=== PATIENT | female | born 1940 | race Caucasian/White ===

== ENCOUNTER → 2016-08-05 | Outpatient (CLI) | payer MEDICARE, BC ==
[~2016-08-05] MED LIST: ADDERALL10 MG PO; APIDRA SOLOS100 U/ML SC; APIDRAVL SQ; ASPIRIN 81M81 MG/TA2 PO; AVAPRO75 MG PO; BENADRYL25 M2 PO; CARAFATE 1GM1 G PO; CLEOCIN HCL300 MG PO; CO Q-1010 M1 PO; FLEXERIL 1010 MG/TAB PO; FORT1000TA PO; HUMALOG100 U/ML; HYDROCORTISO28.35 GM TP; LANTUS SOLOS100 U/ML SQ; LANTUS100 U/ML SQ; LOPRESSOR 225 MG/TAB PO; LOTRIMIN1% TP; MAGNESIUM500 MG PO; MELATONIN5 MG; METAMUCIL3.4 GM/DOS PO; NORCO 325 MG-7.1 TAB PO; PRAVACHOL 40MG40 MG PO; PRIL40 PO; ROBAXIN 75750 MG/TAB PO; STRATTERA 10MG10 MG; TUMS500 MG PO; VITAMIN B COMPL1 T16 PO; VITAMIN D 1001000 IU PO; VITAMIN D31000 IU PO; VITAMIN D32000 I1 PO; WELLBUTRIN XL150 MG PO; [UNRECOGNIZED DRUG - OTHER] PO
== END ==
LOC: COL.RAD 07:52
PROVIDERS: Surgery
DX: D37.4 Neoplasm of uncertain behavior of colon (principal); K55.1 Chronic vascular disorders of intestine
CPT/HCPCS: Q9967

== ENCOUNTER 2016-08-10 10:56 | Inpatient (IN) | payer MEDICARE, BC ==
[~2016-08-10] VITALS: Ht 165.1 cm; Wt 85.3 kg
[~2016-08-10 10:56] MED LIST changes: -ASPIRIN 81M81 MG/TA2 PO; -HYDROCORTISO28.35 GM TP; -LOPRESSOR 225 MG/TAB PO; -LOTRIMIN1% TP; -ROBAXIN 75750 MG/TAB PO; -TUMS500 MG PO; -VITAMIN D 1001000 IU PO; -WELLBUTRIN XL150 MG PO
[2016-09-22] VITALS (13 sets, daily range): BP systolic 129–189; BP diastolic 56–94; PULSE 73–120; TEMP 98.3–99.8
[2016-09-22] MEDS ORDERED: WELLBUTRIN XL150 MG PO (07:00)
[2016-09-22] MEDS ORDERED: VITAMIN D 1001000 IU PO (07:00)
[2016-09-22] MEDS ORDERED: TUMS500 MG PO (07:01)
[2016-09-22] MEDS ORDERED: ROBAXIN 75750 MG/TAB PO (07:01)
[2016-09-22] MEDS ORDERED: HYDROCORTISO28.35 GM TP (07:02)
[2016-09-22] MEDS ORDERED: LOTRIMIN1% TP (07:04)
[2016-09-22 22:56] LABS: HEMATOCRIT 41.7 % (37.0-47.0); HEMOGLOBIN 14.4 g/dl (12.5-16.0)
[2016-09-23] VITALS (11 sets, daily range): BP systolic 125–204; BP diastolic 59–95; PULSE 75–118; TEMP 98.1–99.8
[2016-09-23 07:34] LABS: HEMATOCRIT 40.4 % (37.0-47.0); HEMOGLOBIN 13.4 g/dl (12.5-16.0); MEAN CELL VOLUME 89 fl (80.0-100.0); MEAN CORPUSCULAR HEMOGLOBIN 30 pg (27.0-31.0); MEAN CORPUSCULAR HGB CONC 33 g/dl (33.0-37.0); MEAN PLATELET VOLUME 11.3 fl (7.4-10.4); PLATELET COUNT 177 K/mm3 (130-400); RED BLOOD COUNT 4.55 M/mm3 (4.10-5.30); REDCELL DISTRIBUTION WIDTH-CV 13.7 % (11.5-14.5); WHITE BLOOD COUNT 8.8 K/mm3 (4.8-10.8)
[2016-09-23 07:50] LABS: CALCIUM 8.3 mg/dL (8.4-10.2); CREATININE, serum 0.91 mg/dL (0.52-1.25); POTASSIUM 3.6 mmol/L (3.4-5.0)
[2016-09-23 18:38] LABS: ARTERIAL BLD GAS O2 SATURATION 89.5 % (92-100); ARTERIAL BLD GAS TCO2 CT 25.4; ARTERIAL BLOOD GAS BASE EXCESS -0.6 (-2-2); ARTERIAL BLOOD GAS HCO3 24.2 meq/L (22-26); ARTERIAL BLOOD GAS PHT 7.39 C (7.35-7.45); ARTERIAL BLOOD GAS PO2 56.4 mmHg (80-100); ARTERIAL BLOOD GAS PO2T 56.4 (80-100); ARTERIAL BLOOD GAS pH 7.39 (7.35-7.45); OXYHEMOGLOBIN 87.9 %
[2016-09-23 18:39] LABS: ATS? YES
[2016-09-24] VITALS (7 sets, daily range): BP systolic 121–164; BP diastolic 48–72; PULSE 69–107; TEMP 98–98.8
[2016-09-25 01:38] VITALS: BP 144/71; PULSE 78; TEMP 98.5
[2016-09-25 04:41] VITALS: BP 157/79; PULSE 81; TEMP 98.6
[2016-09-25 07:22] LABS: HEMOGLOBIN 12.9 g/dl (12.5-16.0); MEAN CELL VOLUME 87 fl (80.0-100.0); MEAN CORPUSCULAR HEMOGLOBIN 30 pg (27.0-31.0); MEAN CORPUSCULAR HGB CONC 34 g/dl (33.0-37.0); PLATELET COUNT 180 K/mm3 (130-400); RED BLOOD COUNT 4.37 M/mm3 (4.10-5.30); REDCELL DISTRIBUTION WIDTH-CV 13.2 % (11.5-14.5); WHITE BLOOD COUNT 6.3 K/mm3 (4.8-10.8)
[2016-09-25 07:57] LABS: CALCIUM 8.8 mg/dL (8.4-10.2); CREATININE, serum 0.52 mg/dL (0.52-1.25); POTASSIUM 3.1 mmol/L (3.4-5.0)
[2016-09-25 09:35] VITALS: BP 141/57; PULSE 86; TEMP 99.2
[2016-09-25 10:19] VITALS: TEMP 98.7
[2016-09-25] MEDS ORDERED: LOPRESSOR 225 MG/TAB PO (12:09)
[2016-09-25] MEDS ORDERED: LANTUS100 U/ML SQ (12:10)
[2016-09-25] MEDS ORDERED: ASPIRIN 81M81 MG/TA2 PO (12:10)
[2016-09-25 13:29] VITALS: BP 166/72; PULSE 80; TEMP 98.9
== END 2016-09-25 16:00 | disposition home or self-care (01) | DRG 329 ==
LOC: INPTSU 09-22 05:31 → SURG 09-22 07:30
PROVIDERS: Family Medicine; Internal Medicine; Surgery
PROC: 8E0W0CZ Robotic Assisted Procedure of Trunk Region, Open Approach (ICD-10-PCS; 2016-09-22)
PROC: 0DTF0ZZ Resection of Right Large Intestine, Open Approach (ICD-10-PCS; principal; 2016-09-22 07:30)
DX: D12.3 Benign neoplasm of transverse colon (principal); I21.4 Non-ST elevation (NSTEMI) myocardial infarction; Z80.0 Family history of malignant neoplasm of digestive organs; E11.9 Type 2 diabetes mellitus without complications; Z85.41 Personal history of malignant neoplasm of cervix uteri; R00.0 Tachycardia, unspecified; I97.3 Postprocedural hypertension
CPT/HCPCS: 99222; 99232-AI; 99233-AI; A4315; A9284; J0330; J0360; J0690; J1170; J1200; J1650; J1815; J2405; J2704; J2710; J7030; J7040

== ENCOUNTER 2018-01-14 11:43 | Observation (INO) | payer MEDICARE, BC ==
[~2018-01-14] VITALS: Ht 165.1 cm; Wt 87.8 kg
[~2018-01-14 11:43] MED LIST changes: +ASPIRIN 81M81 MG/TA2 PO; +HYDROCORTISO28.35 GM TP; +LOPRESSOR 225 MG/TAB PO; +LOTRIMIN1% TP; +ROBAXIN 75750 MG/TAB PO; +TUMS500 MG PO; +VITAMIN D 1001000 IU PO; +WELLBUTRIN XL150 MG PO
[2018-01-14] MEDS ORDERED: LANTUS SOLOS100 U/ML SQ (13:03)
[2018-01-14 13:04] LABS: BASO # 0.1 (0.0-0.2); BASO % 0.8 % (0.0-2.0); EOS # 0.2 (0.0-0.7); EOS % 2.8 % (0-4.0); GRAN # 3.1 (1.4-6.5); GRAN % 50.3 % (42.2-75.2); HEMATOCRIT 44.1 % (37.0-47.0); HEMOGLOBIN 15.3 g/dl (12.5-16.0); LYMPH # 2.2 (1.2-3.4); LYMPH % 36.6 % (20.0-51.0); MEAN CELL VOLUME 84 fl (80.0-100.0); MEAN CORPUSCULAR HEMOGLOBIN 29 pg (27.0-31.0); MEAN CORPUSCULAR HGB CONC 35 g/dl (33.0-37.0); MEAN PLATELET VOLUME 11.9 fl (7.4-10.4); MONO # 0.5 (0.1-0.6); MONO % 8.8 % (1.7-9.3); PLATELET COUNT 179 K/mm3 (130-400); RED BLOOD COUNT 5.26 M/mm3 (4.10-5.30); REDCELL DISTRIBUTION WIDTH-CV 12.6 % (11.5-14.5)
[2018-01-14] MEDS ORDERED: APIDRAVL SQ (13:06)
[2018-01-14 13:10] LABS: ALBUMIN 4.1 gm/dL (3.5-5.0); BILIRUBIN,TOTAL 0.8 mg/dL (0.0-1.0); CREATININE, serum 0.54 mg/dL (0.52-1.25); POTASSIUM 3.9 mmol/L (3.4-5.0); TOTAL PROTEIN 7.3 gm/dL (6.4-8.2)
[2018-01-14 16:26] VITALS: BP 141/65; PULSE 89; TEMP 98.2
[2018-01-14 20:12] VITALS: BP 153/80; PULSE 87; TEMP 98.4
[2018-01-14 23:26] VITALS: BP 138/61; PULSE 97; TEMP 98.6
[2018-01-15 04:17] VITALS: BP 167/94; PULSE 74; TEMP 98.4
[2018-01-15 07:30] LABS: CHOLESTEROL RISK RATIO 4.6
[2018-01-15 08:39] VITALS: BP 147/87; PULSE 79; TEMP 98.2
[2018-01-15 10:21] VITALS: BP 112/72; BP 139/66; PULSE 65; PULSE 84
[2018-01-15 12:00] VITALS: BP 159/73; PULSE 93; TEMP 98.5
== END 2018-01-15 16:33 | disposition home or self-care (01) ==
LOC: COL.ER 11:43 → MEDICAL 14:21
PROVIDERS: Emergency Medicine; Physician Assistant
DX: F80.1 Expressive language disorder (principal); E11.9 Type 2 diabetes mellitus without complications; Z79.4 Long term (current) use of insulin; G47.33 Obstructive sleep apnea (adult) (pediatric); Z79.82 Long term (current) use of aspirin; Z79.899 Other long term (current) drug therapy; F32.9 Major depressive disorder, single episode, unspecified; E66.9 Obesity, unspecified; I25.2 Old myocardial infarction
CPT/HCPCS: A9585; G0378; J1644; J1815

== ENCOUNTER → 2019-04-12 | Outpatient (CLI) | payer MEDICARE, BC | LOC: COL.RAD 08:59 | DX: Z01.812 Encounter for preprocedural laboratory examination (principal); M48.061 Spinal stenosis, lumbar region without neurogenic claudication | CPT/HCPCS: A9585 ==

== ENCOUNTER 2019-05-22 20:05 | Observation (INO) | payer MEDICARE, BC ==
[~2019-05-22] VITALS: Ht 165.1 cm; Wt 88.0 kg
[2019-05-22] MEDS ORDERED: HUMALOG PEN100 U/ML SQ (20:19)
[2019-05-22 23:51] LABS: COLLECTION METHOD CLEAN CATCH
[2019-05-23] VITALS (9 sets, daily range): BP systolic 128–196; BP diastolic 71–91; PULSE 71–100; TEMP 97.8–99.1
[2019-05-23 00:08] LABS: BASO # 0.1 (0.0-0.2); BASO % 0.4 % (0.0-2.0); EOS # 0.2 (0.0-0.7); EOS % 1.6 % (0-4.0); GRAN # 8.3 (1.4-6.5); GRAN % 72.3 % (42.2-75.2); HEMATOCRIT 43.1 % (37.0-47.0); HEMOGLOBIN 14.6 g/dl (12.5-16.0); LYMPH # 2.2 (1.2-3.4); LYMPH % 18.8 % (20.0-51.0); MEAN CELL VOLUME 86 fl (80.0-100.0); MEAN CORPUSCULAR HEMOGLOBIN 29 pg (27.0-31.0); MEAN CORPUSCULAR HGB CONC 34 g/dl (33.0-37.0); MEAN PLATELET VOLUME 10.4 fl (7.4-10.4); MONO # 0.8 (0.1-0.6); MONO % 6.6 % (1.7-9.3); PLATELET COUNT 220 K/mm3 (130-400); RED BLOOD COUNT 5.01 M/mm3 (4.10-5.30); REDCELL DISTRIBUTION WIDTH-CV 12.9 % (11.5-14.5)
[2019-05-23 00:11] LABS: MUCOUS Present /lpf; PH 5 (5-8); SQUAMOUS EPITHELIAL None Seen /hpf; URINE APPEARANCE Clear; URINE BACTERIA None Seen /hpf; URINE BILIRUBIN Negative (NEGATIVE); URINE BLOOD Negative (NEGATIVE); URINE COLOR Yellow; URINE GLUCOSE 2+ (NEGATIVE); URINE KETONE Negative (NEGATIVE); URINE LEUKOCYTE ESTERASE Negative (NEGATIVE); URINE NITRATE Negative (NEGATIVE); URINE PROTEIN(semi-quant) Negative (NEGATIVE); URINE UROBILINOGEN Negative (NEGATIVE)
[2019-05-23 00:18] LABS: CALCIUM 9.3 mg/dL (8.4-10.2); CREATININE, serum 0.73 (0.52-1.25)
[2019-05-23] MEDS ORDERED: GLUCOPHAGE1000 MG PO (01:00)
--- NOTE | 2019-05-23 04:23 | NUR ---
Pt arrived to unit around 0200 from ED with dx of fall and gait instability. Patient is alert and oriented. Mild HTN. IV to right AC INT. Fentanyl given when she arrived 25mcg for pain, most c/o pain to left ankle. Left ankle is swollen. No fx shown on imaging. Here for pain control and observation. Denies needs at this time. Call light within reach, will continue to monitor
[2019-05-23 06:21] LABS: CALCIUM 9.3 mg/dL (8.4-10.2); CREATININE, serum 0.63 (0.52-1.25); POTASSIUM 3.8 mmol/L (3.4-5.0)
--- NOTE | 2019-05-23 08:14 | NUR ---
SEE MORNING SHIFT ASSESSMENT. PATIENT RESTING IN BED THIS MORNING. NON-PITTING EDEMA TO LEFT ANKLE, KNEE AND WRIST. BRACE IN PLACE TO LEFT WRIST. PATIENTS LEFT EXTREMITIES ELEVATED ON PILLOWS AND ICE PACKS APPLIED TO LEFT UPPER AND LOWER EXTREMITIES. PATIENTS BLOOD PRESSURE THIS AM IS 177/82 WITH A LORETTA OF 99.1. PATIENT GIVEN PRN HYDRALAZINE AND TYLENOL. WILL CONTINUE TO MONITOR. CALL LIGHT WITHIN REACH. PATIENT DENIES ANY OTHER NEEDS AT THIS TIME.
--- NOTE | 2019-05-23 10:21 | NUR ---
SW met with the patient to discuss discharge plan. The patient lives alone at [facility] in [facility]. She states that her son, Carmelo Montoya (ph#[phone]), also lives in [place]. She reports independence with ADLs and has a cane, two walkers, and a CPAP from [facility]. She does not have any home health services. The patient's PCP is Dr. Amber Major and she [facility] her [facility] She reports no difficulties obtaining her meds. The patient does not have advanced directives in EMR, but she states that she does have them completed. She states that her DPOA-HC is her children, Carmelo Montoya and Alana Galvan (ph#[phone]). The patient had a fall and is having left lower extremity pain and wrist pain. PT/OT have been ordered. SW discussed the patient's observation status and post-acute rehab. The patient states that she would first like to see what PT/OT recommend. She states that if post-acute rehab is recommended, that she does have courtesy days at [facility]. SW awaiting PT/OT evals and will continue to follow.
--- NOTE | 2019-05-23 10:57 | NUR ---
MATHEW staffed with Familia from PT. Familia recommends [facility] for the patient with continued PT/OT if possible, otherwise home with home health and a platform walker. MATHEW met with the patient to discuss these options. The patient reports that she would prefer going to [facility] [facility]. MATHEW presented and explained the Patient Choice Form and provided her with Medicare.[facility]'s list of nursing homes in the [facility]. The patient chose [facility], due to have courtesy days there. Patient Choice Form signed by the patient and she was provided a copy. MATHEW contacted and faxed a referral to Elaine at [facility]. MATHEW awaiting their screen.
--- NOTE | 2019-05-23 11:58 | NUR ---
PATIENT GIVEN 10 MG OF PRN HYDRALAZINE IV FOR A BLOOD PRESSURE OF 182/85.
--- NOTE | 2019-05-23 13:31 | NUR ---
PATIENTS BLOOD PRESSURE RE-CHECKED AFTER PRN HYDRALAZINE. BLOOD PRESSURE NOW 145/74.
--- NOTE | 2019-05-23 15:07 | NUR ---
Initial visit; Patient thanked Repeat Photocomposing Machine Operator for looking in on her and offering comfort, encouragement and prayer. Repeat Photocomposing Machine Operator will follow up.
--- NOTE | 2019-05-23 15:45 | NUR ---
REPORT GIVEN TO VALENTÍN PONCE.
--- NOTE | 2019-05-23 17:59 | NUR ---
Patient laying in bed watching TV. A&), denies pain and discomfort. Patient informed the nurse that she is going to [facility] tomorrow 05/24. Left arm in splint. VSS. IV CDI. No further needs expressed from patient. Call light within reach
--- NOTE | 2019-05-23 19:33 | NUR ---
Lying in bed in supine position. Has left wrist brace on. Having restless leg symptoms, asks if there is tonic water. Explain that we do not have tonic water. Rates pain on left side 4/10, describes as achy pain. Would like fentayl at this time to help relax to sleep. Denies further needs.
--- NOTE | 2019-05-23 19:51 | NUR ---
Administered Fentanyl as prescribed at this time per patient request for pain on left side. Patient denies further needs at this time.
--- NOTE | 2019-05-23 20:22 | NUR ---
Patient complaining of feeling itchy on arms, legs, and face. Requests hydrocortisone cream to put on body and face. Explain that I would contact the provider to see what they would like to order. Patient also says that Benadryl works too. Contacted Ms. Raygoza, hospitalist and she will place orders for Benadryl at this time.
--- NOTE | 2019-05-23 20:46 | NUR ---
Benadryl 25mg IV administered at this time. Instructed the patient that the medication may make her sleepy and if she needs out of bed to call us for help. Patient denies further needs.
--- NOTE | 2019-05-23 21:32 | NUR ---
Patient reports that the Benadryl alleviated itching. Assisted patient to comfortable position in the bed. Patient denies further needs at this time.
--- NOTE | 2019-05-23 22:51 | NUR ---
Lying in bed with eyes open. Rates pain 5/10 in left side of body. Requests Fentanyl. Explain to the patient that it is still a little bit too soon to give Fentanyl but I could give her Tylenol and also last time she got the Fentanyl she got itchy. Patient says that she does not think the itchiness was from the Fentanyl. Explain that we could try the Tylenol first. Patient agrees. Explain that we can only give Benadryl every six hours. Patient agrees to Tylenol at this time. Medication administered as prescribed. Patient denies further needs at this time.
--- NOTE | 2019-05-24 00:14 | NUR ---
Lying in bed with eyes closed. Respirations even and unlabored. No signs or symptoms of discomfort noted.
[2019-05-24 04:00] VITALS: BP 176/91; PULSE 94; TEMP 98.2
--- NOTE | 2019-05-24 04:28 | NUR ---
BP 176/91. Administer apresoline as prescribed. Patient up to bedside commode at this time.
[2019-05-24 05:12] VITALS: BP 165/83; PULSE 102
--- NOTE | 2019-05-24 05:13 | NUR ---
BP 165/83. Patient explains that she is starting to feel itchy again and she would like to get Benadryl. Will administer as prescribed at this time.
--- NOTE | 2019-05-24 07:23 | NUR ---
Report from Lupe LAURA.
[2019-05-24 07:40] LABS: BASO % 0.4 % (0.0-2.0); EOS # 0.2 (0.0-0.7); EOS % 2.3 % (0-4.0); GRAN # 4.6 (1.4-6.5); GRAN % 66.5 % (42.2-75.2); HEMATOCRIT 41.7 % (37.0-47.0); LYMPH # 1.4 (1.2-3.4); LYMPH % 20.3 % (20.0-51.0); MEAN CELL VOLUME 86 fl (80.0-100.0); MEAN CORPUSCULAR HEMOGLOBIN 29 pg (27.0-31.0); MEAN CORPUSCULAR HGB CONC 34 g/dl (33.0-37.0); MEAN PLATELET VOLUME 10.9 fl (7.4-10.4); MONO # 0.7 (0.1-0.6); MONO % 9.9 % (1.7-9.3); PLATELET COUNT 200 K/mm3 (130-400); RED BLOOD COUNT 4.84 M/mm3 (4.10-5.30); REDCELL DISTRIBUTION WIDTH-CV 12.9 % (11.5-14.5)
[2019-05-24 07:51] VITALS: BP 164/81; PULSE 97; TEMP 98
[2019-05-24] MEDS ORDERED: NORCO 325 MG-51 TAB PO (09:39)
[2019-05-24] MEDS ORDERED: BENADRYL25 M2 PO (09:39)
[2019-05-24] MEDS ORDERED: TYLENOL 325MG325 MG PO (09:39)
[2019-05-24] MEDS ORDERED: LEADER CLE17 GM/Dose PO (09:40)
--- NOTE | 2019-05-24 10:02 | NUR ---
PATIENT UP TO RECLINER WITH ASSIST FROM OT. PLAN ON DISCHARGE LATER TODAY TO [facility].
[2019-05-24 11:31] VITALS: BP 153/74; PULSE 99; TEMP 97.8
--- NOTE | 2019-05-24 12:53 | NUR ---
Elaine, at [facility], reports that they are able to accept the patient and that the patient has 12 courtesy days. MATHEW informed the patient and she would like to pursue with going to [facility]. The patient is to discharge today, 05/24, for an emergency admit to [facility] for a skilled stay. Transportation was scheduled for 1400, via [facility]. MATHEW informed the patient and her RN. They were both in agreeance to the time. No additional needs at this time.
--- NOTE | 2019-05-24 14:27 | NUR ---
REPORT TO KAUSHAL LLAMAS @ [facility]. PT LEFT WITH TRANSPORTATIONS FROM [facility].
== END 2019-05-24 14:50 ==
LOC: COL.ER 20:05 → SURG 22:41
PROVIDERS: Emergency Medicine; Nurse Practitioner Family; ADMIT Student in an Organized Health Care Education/Training Program
DX: M25.532 Pain in left wrist (principal); R53.81 Other malaise; D72.829 Elevated white blood cell count, unspecified; E11.9 Type 2 diabetes mellitus without complications; I10 Essential (primary) hypertension; F32.9 Major depressive disorder, single episode, unspecified; G47.33 Obstructive sleep apnea (adult) (pediatric); Z91.040 Latex allergy status; F90.9 Attention-deficit hyperactivity disorder, unspecified type; I25.2 Old myocardial infarction; Z79.4 Long term (current) use of insulin; Z86.73 Personal history of transient ischemic attack (TIA), and cerebral infarction without residual deficits; Z88.1 Allergy status to other antibiotic agents; Z88.6 Allergy status to analgesic agent; Z88.5 Allergy status to narcotic agent; Z88.8 Allergy status to other drugs, medicaments and biological substances; Z91.018 Allergy to other foods; Z79.52 Long term (current) use of systemic steroids; Z96.653 Presence of artificial knee joint, bilateral; Z90.49 Acquired absence of other specified parts of digestive tract; Z90.710 Acquired absence of both cervix and uterus; Z85.42 Personal history of malignant neoplasm of other parts of uterus
CPT/HCPCS: 99223-AI; 99239; C9113; G0008; G0378; J0360; J1200; J1815; J3010

== ENCOUNTER → 2019-06-13 | Outpatient (CLI) | payer MEDICARE, BC ==
[~2019-06-13] MED LIST changes: +GLUCOPHAGE1000 MG PO; +HUMALOG PEN100 U/ML SQ; +LEADER CLE17 GM/Dose PO; +NORCO 325 MG-51 TAB PO; +TYLENOL 325MG325 MG PO
== END ==
LOC: MHCPAIN 14:14
DX: M47.817 Spondylosis without myelopathy or radiculopathy, lumbosacral region (principal); M54.16 Radiculopathy, lumbar region
CPT/HCPCS: G0463

== ENCOUNTER 2019-08-17 11:00 | Outpatient (RCR) | payer MEDICARE, BC | END 2019-09-26 | disposition home or self-care (01) | LOC: WSPT | DX: M53.3 Sacrococcygeal disorders, not elsewhere classified (principal); M96.1 Postlaminectomy syndrome, not elsewhere classified; M54.16 Radiculopathy, lumbar region; M25.562 Pain in left knee ==

== ENCOUNTER → 2021-05-13 | Outpatient (CLI) | payer MEDICARE, BC | LOC: DIA.ED 07:35 | DX: E11.9 Type 2 diabetes mellitus without complications (principal); Z79.4 Long term (current) use of insulin; I10 Essential (primary) hypertension | CPT/HCPCS: G0108 ==

== ENCOUNTER → 2021-12-02 | Outpatient (CLI) | payer MEDICARE, BC | LOC: DIA.ED 11-11 01:00 | DX: E11.9 Type 2 diabetes mellitus without complications (principal); Z79.4 Long term (current) use of insulin; I10 Essential (primary) hypertension ==

== ENCOUNTER 2022-06-29 13:08 | Outpatient (CLI) | payer MEDICARE, BC ==
[2022-06-29 14:35] VITALS: BP 149/88; PULSE 87
[2022-06-29] MEDS ORDERED: TURMERIC500 MG PO (15:44)
[2022-06-29] MEDS ORDERED: ZESTRIL40 MG PO (15:47)
[2022-06-29] MEDS ORDERED: B COMPLEX #11 TA1 PO (15:48)
[2022-06-29] MEDS ORDERED: VITAMIN D31000 I1 PO (15:48)
--- NOTE | 2022-06-29 15:55 | NUR ---
Pt remained in dept following initial reclast infusion. No s/s of reaction. Pt information packet about reclast printed and provided to pt. IV DC'd, site wrapped with coban. Pt is escorted out to elevator with steady gait.
== END 2022-06-29 15:55 | disposition home or self-care (01) ==
LOC: EUO 13:08
DX: M85.80 Other specified disorders of bone density and structure, unspecified site (principal)
CPT/HCPCS: J3489

== ENCOUNTER 2023-06-30 13:11 | Outpatient (CLI) | payer MEDICARE, BC ==
[~2023-06-30] VITALS: Ht 162.6 cm; Wt 73.8 kg
[~2023-06-30 13:11] MED LIST changes: +ALLEGRA ALLERGY60 MG PO; +APIDRAVL IM; +ASPIRIN E.C. 8181 MG PO; +B COMPLEX #11 TA1 PO; +LIPITOR 40MG TA40 MG PO; +NORVASC 10MG10 MG PO; +PROTONIX 40MG T40 MG PO; +TURMERIC500 MG PO; +VITAMIN D31000 I1 PO; +ZESTRIL40 MG PO
[2023-06-30] MEDS ORDERED: ZESTRIL 20MG TA20 MG PO (13:55)
[2023-06-30] MEDS ORDERED: LANTUS100 U/ML SQ (13:56)
[2023-06-30] MEDS ORDERED: OZEMPIC1 MG/0.71 SQ (13:56)
[2023-06-30 13:58] VITALS: BP 129/76; PULSE 77; TEMP 98
== END 2023-06-30 14:20 | disposition home or self-care (01) ==
LOC: EUO 13:11
DX: M81.0 Age-related osteoporosis without current pathological fracture (principal)
CPT/HCPCS: J3489